=== PATIENT | female | born 1955 | race Two or more races ===

== ENCOUNTER 2021-02-12 10:25 | Outpatient (AMBR) | payer MEDICAID, SELFPAY ==
--- NOTE | 2021-01-30 11:36 | PT.OIERPT ---
PT OP Initial Eval Patient Information Visit Reasons: lumbar/cervical Medical Diagnosis: M48.02 Treatment Dx #1: Neck Pain Treatment Dx #2: C/S Mobility Deficits Start of Care: 01/30/21 Date of Onset: 2 years ago Initial Assessment Subjective Pt is a 65 y/o female reports of chronic neck pain (02/23) with BUE numbness and tingling down the arms. Pt's past c/s MRI showed moderate-severe stenosis multi-levels. Pt c/o constant headache and difficulty with chores, self care, sleeping, lifting, cooking, cleaning, and recreational activities. Pt is also under the care of a pain management doctor in [facility]. Objective C/S AROM: all motions are 50% towards end range with pain except extension to neutral Shoulder AROM Flexion: 140 deg Abduction: 120 deg External Rotation: 80 deg Internal Rotation: 70 deg Shoulder MMTs: grossly 3-/5 Scapula MMTs: grossly 3-/5 Palpation: TTP and increase tone upper trape and levator scapulae; TTP bilateral suboccipitals DNF Endurance Test: unable due to pain Posture: forward head, rounded shoulders with slight T/S kyphosis Assessment Pt demonstrate c/s mobility deficits with pain consistent with MRI finding of c/s stenosis leading to decline function and difficultly with ADLs. Pt will attempt physical therapy if pain persist Pt will be refer back to MD for further consultation. Short Term and Prison Goals 1) Increase C/S AROM WFL in 8 wks to be able to perform chores 2) Increase BUE AROM WFL in 8 wks to be able to cook and clean with less limitation 3) Increase BUE MMTs grossly to 3+/5 in 8 wks to be able to perform lifting activities 4) Decrease neck pain to 4/10 in 8 wks to be able to sleep more than 5 hrs 5) Indep with HEP Treatment Plan 1) Manual Therapy 2) Therapeutic Activities 3) Therapeutic Exercises 4) Modalities (ice, heat, estim, traction) Frequency and Duration 2 x wk for 8 wks Certification Dates: 01/30/21 to 05/01/21 Office Procedures PT Treatments PT Date of Service: 01/30/21 OP PT Eval Mod Complex 30 minutes: Yes
--- NOTE | 2021-02-05 13:55 | PTNOTE_ITS ---
PT Outpatient Daily Note Date of Service: 02/05/21 OP Daily Note Visit Reasons: lumbar/cervical Outpatient Physical Therapy Treatment Date: 02/05/21 Subjective: Pt's neck hurts and head feels heavy on the shoulders. Pt has difficulty sleeping due to her pain. Objective: Please see flow chart for list of ther ex performed Assessment: c/s traction and STM help decrease neck pain with improve neck flexion/extension AROM. Pt tolerate heat with stretches well Plan: Continue with PT Length of Time (minutes) of Treatment: 30 Minutes Office Procedures PT Treatments PT Date of Service: 02/05/21 Therapeutic Exercise 15 minutes: Yes Manual Distribution Warehouse Manager 15 minutes: Yes PT Treatments PT Date of Service: 01/30/21 OP PT Eval Mod Complex 30 minutes: Yes
--- NOTE | 2021-02-12 12:13 | PT.ODAYNRPT ---
PT Outpatient Daily Note Date of Service: 02/12/21 OP Daily Note Visit Reasons: lumbar/cervical Outpatient Physical Therapy Treatment Date: 02/12/21 Subjective: Pt's neck feels worse after last session. Pt continues to notice her head heavy Objective: Please see flow chart for list of ther ex performed Assessment: tolerate exercises with minimal pain; demonstrate decrease suboccipital muscle tone which she did not need STM. Pt still exhibit tension in right upper trape and levator which improve after stretching + heat Plan: Continue with PT Length of Time (minutes) of Treatment: 30 Minutes Office Procedures PT Treatments PT Date of Service: 02/05/21 Therapeutic Exercise 15 minutes: Yes Manual Visitor Services Technician 15 minutes: Yes PT Treatments PT Date of Service: 02/12/21 Therapeutic Exercise 30 minutes: Yes PT Treatments PT Date of Service: 01/30/21 OP PT Eval Mod Complex 30 minutes: Yes
== END 2021-02-13 23:59 | disposition home or self-care (01) ==
PROVIDERS: PCP Psychiatry & Neurology Neurology; Referring Provider Psychiatry & Neurology Neurology; Visit Provider Physical Medicine & Rehabilitation Pain Medicine
DX: M54.2 Cervicalgia (principal); G89.29 Other chronic pain; R20.0 Anesthesia of skin; R20.2 Paresthesia of skin
CPT/HCPCS: 97110; 97140; 97162

== ENCOUNTER 2021-03-28 13:17 | Outpatient (AMBR) | payer MEDICAID, SELFPAY ==
--- NOTE | 2021-03-25 14:03 | PT.ODAYNRPT ---
PT Outpatient Daily Note Date of Service: 03/25/2021 OP Daily Note Visit Reasons: cervical Outpatient Physical Therapy Treatment Date: 03/25/21 Subjective: Pt reports she has alot of pain to her neck and her back hurts when shes laying down. Objective: See flow chart for therex. MT: STM w/ graston x 10mins. Mechanical Traction: C/S x 15lbs x 7mins. Assessment: Pt has pain when in supine to her mid and lower back. Asked pt if she wanted to sit up and she said she was able to tolerate it. Edema present to L cervical. Mod tissue irritability to subboccipitals. Pt tolerated MT and Mechanical traction well w/out complaints. Plan: Cont POC per PT. Length of Time (minutes) of Treatment: 30 Minutes Office Procedures PT Treatments PT Date of Service: 03/25/21 Therapeutic Exercise 15 minutes: Yes Manual Sanitation Technician 15 minutes: Yes
--- NOTE | 2021-03-28 15:19 | PT.ODAYNRPT ---
PT Outpatient Daily Note Date of Service: 03/28/2021 OP Daily Note Visit Reasons: cervical Outpatient Physical Therapy Treatment Date: 03/28/21 Subjective: pt states her neck has pain upon visit. Objective: see flow sheet. Assessment: she did not tolerate the heat around the neck long due to sensitivity. she needs assistance with getting up from traction in supine to EOB. pt needs more practice with chin tucks exercise as she has poor form. added pulleys with side bend of the c/s and she tolerated well with no complaints. Plan: continue POC per PT. Length of Time (minutes) of Treatment: 30 Minutes Office Procedures PT Treatments PT Date of Service: 03/28/21 Traction Mechanical: Yes Therapeutic Exercise 15 minutes: Yes PT Treatments PT Date of Service: 03/25/21 Therapeutic Exercise 15 minutes: Yes Manual Surgical Consultant 15 minutes: Yes
== END 2021-04-15 23:59 | disposition home or self-care (01) ==
PROVIDERS: PCP Psychiatry & Neurology Neurology; Referring Provider Psychiatry & Neurology Neurology; Visit Provider Psychiatry & Neurology Neurology
DX: M54.2 Cervicalgia (principal); G89.29 Other chronic pain; R20.0 Anesthesia of skin; R20.2 Paresthesia of skin
CPT/HCPCS: 97012; 97110; 97140

== ENCOUNTER 2021-04-17 14:08 | Outpatient (AMBR) | payer MEDICAID, SELFPAY ==
--- NOTE | 2021-04-17 14:17 | PTNOTE_ITS ---
PT OP Progress/Discharge Note Date of Service: 04/17/21 Progress Note/DC Note Progress Note/Discharge Note: DC Note Patient Information Visit Reasons: cervical Medical Diagnosis: M48.02 Treatment Dx #1: Neck Pain Treatment Dx #2: C/S Mobility Deficits Service Continue Service or Discharge: Discharge Discharge Date: 04/17/21 Status Subjective: Pt's neck is the same since starting physical therapy. Pt continues to have neck pain (11/23) with numbness and tingling down her arms. Due to Pt's symptoms she has limitation with lifting, cooking, self care, and performing recreational activities. Pt has been trying to follow up with her neurologist but can't seem to get in due to no further appointments available until the new year. Objective: C/S AROM: all motions are 75 % towards end range with pain Shoulder AROM Flexion: 140 deg Abduction: 120 deg External Rotation: 80 deg Internal Rotation: 70 deg Shoulder MMTs: grossly 3-/5 Scapula MMTs: grossly 3-/5 Palpation: TTP and increase tone upper trape and levator scapulae Assessment: Pt demonstrate minimal progression towards goals or changes with overall cervical spine pain leading to continue limitation with ADLs. Pt will no longer benefit from physical therapy and was advised to follow up with provider for further consultation; thank you for your referrals. Plan: D/C home with [facility] and follow up with MD Office Procedures PT Treatments PT Date of Service: 04/17/21 Therapeutic Exercise 30 minutes: Yes
== END 2021-05-16 23:59 | disposition home or self-care (01) ==
PROVIDERS: PCP Psychiatry & Neurology Neurology; Referring Provider Psychiatry & Neurology Neurology; Visit Provider Psychiatry & Neurology Neurology
DX: M54.2 Cervicalgia (principal); G89.29 Other chronic pain; R20.0 Anesthesia of skin; R20.2 Paresthesia of skin
CPT/HCPCS: 97110

== ENCOUNTER 2024-04-28 19:33 | Emergency (ER) | payer MEDICARE, MEDICAID, SELFPAY ==
[2024-04-28 19:33] VITALS: BMI 26.6
[2024-04-28 20:07] VITALS: BP 150/75; PULSE 78; RESP 20; TEMP 37; O2SAT 97
--- NOTE | 2024-04-28 20:28 | EDNOTE_ITS ---
<Statement entered by Julissa Dias MD - 04/29/24 19:43> As co-signing physician, I was present and available for consult prn. I concur with the plan and care as documented by the midlevel provider. ED Back Injury Pain RME/HPI General Chief Complaint: Back Pain/Injury Stated Complaint: LOWER BACK PAIN Time Seen by Provider: 04/28/24 20:07 Source: patient Arrival date/time: 04/28/24 19:33 69-year-old female presents emergency department complaining of lower back pain that is been ongoing since this morning. Patient reports has chronic low back pain and usually receives Toradol and Benadryl injection that improved symptoms. Patient denies any fever, chills, dysuria, flank pain, bowel or bladder dysfunction, or any other associated symptom. Patient reports has pending MRI of lower back. Mode of arrival: ambulatory Limitations: no limitations Related Data Home Medications ?Medication ?Instructions ?Recorded ?Confirmed clonidine HCl 0.2 mg tablet 0.2 mg PO TID 08/05/20 01/27/22 loratadine 10 mg tablet 10 mg PO QDAY 08/05/20 01/27/22 metoprolol tartrate 50 mg tablet 50 mg PO BID 08/05/20 01/27/22 montelukast 10 mg tablet 10 mg PO HS 08/05/20 01/27/22 atorvastatin 10 mg tablet 10 mg PO HS 10/09/21 01/27/22 pregabalin 100 mg capsule 100 mg PO BID 10/09/21 01/27/22 amlodipine 5 mg tablet 5 mg PO QDAY 01/27/22 01/27/22 ferrous sulfate 325 mg (65 mg 325 mg PO QDAY 01/27/22 01/27/22 iron) tablet furosemide 40 mg tablet 40 mg PO QAM 01/27/22 01/27/22 Previous Rx's ?Medication ?Instructions ?Recorded potassium chloride 8 mEq 8 meq PO QDAY #7 caps 10/12/21 capsule,extended release lidocaine 5 % topical patch 2 patch topical QDAY #15 ea 01/25/22 (Lidoderm) melatonin 5 mg tablet 5 mg PO HS PRN sleep #30 tabs 01/25/22 lidocaine 5 % topical patch 1 patch topical QDAY #15 ea 04/16/22 benzonatate 200 mg capsule 200 mg PO TID PRN cough #20 caps 03/23/23 naproxen 500 mg tablet 500 mg PO BID #30 tabs 10/27/23 hydrocodone 5 mg-acetaminophen 325 1 tab PO BID PRN pain #6 tabs 11/14/23 mg tablet dextromethorphan-guaifenesin 10 10 ml PO Q4H PRN cough #500 mL 12/14/23 mg-100 mg/5 mL oral liquid (Diabetic Tussin DM) nirmatrelvir 150 mg-ritonavir 100 See Rx Instructions PO .COMPLEX 12/14/23 mg tablets in a dose pack #20 tabs (Paxlovid) cyclobenzaprine 10 mg tablet 10 mg PO TID PRN muscle spasm #10 04/28/24 tabs ibuprofen 600 mg tablet 600 mg PO Q8H PRN pain #20 tabs 04/28/24 Allergies Allergy/AdvReac Type Severity Reaction Status Date / Time Iodinated Contrast Media Allergy Severe I FEEL Verified 02/09/24 18:33 LIKE MY THROAT IS CLOSING, VOMITING lactose Allergy Severe Diarrhea Verified 02/09/24 18:33 Review of Systems Review of Systems Systems Reviewed: All systems reviewed, normal except as documented Constitutional Constitutional: Reports system reviewed and no additional complaints, except as documented, Denies body ache(s), Denies chills and Denies fever(s) Eyes Eyes: Reports system reviewed and no additional complaints, except as documented and Denies change in vision ENT Ears, Nose, Mouth, and Throat: Reports system reviewed and no additional complaints, except as documented, Denies disequilibrium, Denies dizziness, Denies sore throat and Denies vertigo Cardiovascular Cardiovascular: Reports system reviewed and no additional complaints, except as documented, Denies chest pain and Denies dyspnea Respiratory Respiratory: Reports system reviewed and no additional complaints, except as documented, Denies chest congestion, Denies cough and Denies dyspnea Gastrointestinal Gastrointestinal: Reports system reviewed and no additional complaints, except as documented, Denies abdominal pain, Denies nausea and Denies vomiting Musculoskeletal Musculoskeletal: Reports system reviewed and no additional complaints, except as documented, Denies abnormal gait, Denies arthralgias and Reports back pain Integumentary/Breasts Skin/Breast: Reports system reviewed and no additional complaints, except as documented, Denies erythema, Denies rash and Denies wounds Neurologic Neurologic: Reports system reviewed and no additional complaints, except as documented, Denies abnormal gait, Denies disequilibrium, Denies dizziness and Denies vertigo Past Medical History Past Medical History NEUROLOGIC: Positive Neurological Disorders, Cerebrovascular Accident and Subdural Hematoma CARDIAC: Positive Cardiac Disorders, Hypercholesterolemia and Hypertension; Negative Congestive Heart Failure RESPIRATORY: Positive Asthma; Negative Chronic Obstructive Pulmonary Disease (COPD) GASTROINTESTINAL: Positive Hiatal Hernia GENITOURINARY: Negative Renal Disease MUSCULOSKELETAL: Positive Arthritis and Fibromyalgia ENDOCRINE: Positive Diabetes Mellitus Type 2; Negative Diabetes Mellitus Type 1 Social History SMOKING STATUS: Never smoker SUBSTANCE USE: does not use ED Exam General Limitations: Present no limitations General appearance: Present alert and in no apparent distress Head Head exam: Present atraumatic Eye Eye exam: Present normal appearance, PERRL and EOMI ENT ENT exam: Present normal exam, normal oropharynx and mucous membranes moist Neck Neck exam: Present normal inspection, full ROM and trachea midline Chest Chest inspection: Present normal inspection and symmetric chest wall rise Respiratory Respiratory exam: Present normal lung sounds bilaterally Cardiovascular Cardiovascular exam: Present regular rate, normal rhythm and normal heart sounds Abdominal Exam Abdominal exam: Present soft and normal bowel sounds Extremities Exam Extremities exam: Present normal inspection and full ROM Back Exam Back exam: Present normal inspection, full ROM and straight leg raise (L); Absent CVA tenderness (R) or CVA tenderness (L) Neurological Exam Neurological exam: Present alert, oriented X3 and CN II-XII intact Psychiatric Psychiatric exam: Present normal affect and normal mood Skin Skin exam: Present warm, dry, intact and normal color Course Quality Measures none Orders Category Date Time Status DiphenhydrAMINE INJ [Benadryl Inj] Med 04/28/24 20:28 Discontinued 25 mg IM X1 ONE Ketorolac Inj [Toradol Inj] Med 04/28/24 20:28 Discontinued 30 mg IM X1 ONE Vital Signs Vital signs: Vital Signs Temperature 98.6 F 04/28/24 20:07 Pulse Rate 78 04/28/24 20:07 Respiratory Rate 20 04/28/24 20:07 Blood Pressure 150/75 H 04/28/24 20:07 Pulse Oximetry (%) 97 04/28/24 20:07 Oxygen Delivery Method Room Air 04/28/24 20:07 97% room air within normal limits Back Pain / Injury MDM Narrative MDM Narrative:: 69-year-old female presents emergency department complaining of lower back pain that is been ongoing since this morning. Patient reports has chronic low back pain and usually receives Toradol and Benadryl injection that improved symptoms. Patient denies any fever, chills, dysuria, flank pain, bowel or bladder dysfunction, or any other associated symptom. Patient reports has pending MRI of lower back. Patient given pain medication reported improvement in symptoms. Patient appears nontoxic and is hemodynamically stable. Patient left straight leg raise positive. Patient likely suffering from chronic back pain. Patient ambulating independently with steady gait. Patient discharged with pain medication and muscle relaxer instructed to follow- up with primary care provider. Instructed to return to emergency department for any worsening symptoms or as needed. Patient data External records reviewed:: [facility] previous records Clinical information provided by:: patient Social determinants that could affect healthcare access:: none Patient has the following chronic illnesses:: See chart How is presenting disease/condition affected by chronic disease/condition?: exacerbated by Evaluation data The following diagnostics were reviewed and interpreted by me:: other (specify) (N/A) Lab and/or radiology exams considered but not ordered:: N/A Interpretation Summary: N/A Medications / Prescriptions Medications or Prescriptions considered but not ordered:: Ordered Medication administrations:: Medication Administration History Discontinued Medications Diphenhydramine HCl (Diphenhydramine Inj 50 Mg/Ml Vial) 25 mg IM X1 ONE Stop: 04/28/24 20:29 Last Admin: 04/28/24 21:06 Dose: 25 mg Documented By: Ketorolac Tromethamine (Ketorolac Inj 60 Mg/2 Ml Vial) 30 mg IM X1 ONE Stop: 04/28/24 20:29 Last Admin: 04/28/24 21:08 Dose: 30 mg Documented By: Given Consultations Consultation(s) initiated? (list below): No Diagnosis Differential diagnosis back pain/injury: lumbar radiculopathy, sciatica, strain of lumbar region, renal colic, pyelonephritis, thoracic back pain and discitis Most likely diagnosis given after review of the tests above:: Back pain Admission Indicated Admission indicated?: not indicated Admission Request Was there a request for admission?: No Disposition Plan Disposition Plan: Discharge Discharge Attestation Discharge Attestation: The patient and all family members were given an opportunity to ask questions and understood the discharge instructions. Discharge instructions specifically effects, indications for sooner follow up or return to the emergency department, and the expected course of current diagnosis. Patient condition: Stable Discharge Plan Plan Patient Disposition: HOME (Self Care) Disposition Comment: Stable Prescriptions/Referrals Prescriptions/Med Rec: New cyclobenzaprine 10 mg tablet 10 mg PO TID PRN (Reason: muscle spasm) Qty: 10 0RF ibuprofen 600 mg tablet 600 mg PO Q8H PRN (Reason: pain) Qty: 20 0RF No Action atorvastatin 10 mg Tablet 10 mg PO HS pregabalin 100 mg capsule 100 mg PO BID clonidine HCl 0.2 mg tablet 0.2 mg PO TID metoprolol tartrate 50 mg tablet 50 mg PO BID montelukast 10 mg tablet 10 mg PO HS loratadine 10 mg tablet 10 mg PO QDAY potassium chloride 8 mEq capsule, extended release 8 meq PO QDAY Qty: 7 0RF lidocaine [Lidoderm] 5 % adhesive patch,medicated 2 patch topical QDAY Qty: 15 0RF Rx Instructions: leave on most painful area for up to 12 hrs melatonin 5 mg tablet 5 mg PO HS PRN (Reason: sleep) Qty: 30 0RF benzonatate 200 mg capsule 200 mg PO TID PRN (Reason: cough) Qty: 20 0RF hydrocodone-acetaminophen 5-325 mg tablet 1 tab PO BID MDD 10 PRN (Reason: pain) Qty: 6 0RF Paxlovid 150-100 mg tablets,dose pack See Rx Instructions PO .COMPLEX Qty: 20 0RF Rx Instructions: take ONE 150 mg tablet of nirmatrelvir with ONE 100 mg tablet of ritonavir twice daily for 5 days dextromethorphan-guaifenesin [Diabetic Tussin DM] 10-100 mg/5 mL liquid 10 ml PO Q4H PRN (Reason: cough) Qty: 500 0RF furosemide 40 mg Tablet 40 mg PO QAM amlodipine 5 mg Tablet 5 mg PO QDAY ferrous sulfate 325 mg (65 mg iron) Tablet 325 mg PO QDAY lidocaine 5 % adhesive patch,medicated 1 patch topical QDAY Qty: 15 0RF Rx Instructions: leave on most painful area for up to 12 hrs naproxen 500 mg tablet 500 mg PO BID Qty: 30 0RF Referrals: Temporary Provider,ED [Physician] - In 1 week Problem List Clinical Impression: Back pain Patient/Caregiver Discharge Instructions Discharge Activity: activity as tolerated Education Materials: Anatomy of a Normal Spine, Back Basics: A Healthy Spine, Back Exercises: Abdominal Lift Additional Instructions: Take medication as prescribed. Close follow-up with primary care provider request referral physical therapy or MRI of lower spine if symptoms persist. Return to emergency department for any worsening symptoms or as needed. Print Language: Slovak Stand Alone Forms: [employer] Award Info., Patient Portal Info Letter PA/HAUL DRIVER Supervising Physician PA/HAUL DRIVER Supervising Physician: Dr. Dias
[2024-04-28] MEDS: DiphenhydrAMINE INJ 50 MG/ML VIAL 25 MG IM (21:06)
[2024-04-28] MEDS: KETOROLAC INJ 60 MG/2 ML VIAL 30 MG IM (21:08)
== END 2024-04-28 21:20 | disposition home or self-care (01) ==
LOC: SERX 20:56
PROVIDERS: Emergency Provider Emergency Medicine; PCP Physician Assistant
DX: M54.50 Low back pain, unspecified (principal); G89.29 Other chronic pain
CPT/HCPCS: 96372; 99283; J1200; J1885

== ENCOUNTER → 2024-05-15 | Outpatient (CLI) | payer MEDICARE, MEDICAID, SELFPAY ==
--- NOTE | 2024-05-15 12:00 | XR_ITS ---
Examination: MRI cervical spine with intravenous contrast TECHNIQUE: Multiple axial sagittal MR images post intravenous ministration 14 cc gadolinium Exam date and time: 12/14/2023 1315 hours Comparison March 01, 2024 INDICATIONS: Injury to the head February 09, 2024 with neck pain, enlarged inner vertebral foramina FINDINGS: Adequate alignment cervical vertebral bodies The images are degraded by patient motion No vertebral body fracture No enhancing neural foraminal tumor depicted No abnormal osseous epidural or cervical cord enhancement IMPRESSION: Limited study, continual patient motion No abnormal osseous epidural or cervical cord enhancement
== END | disposition home or self-care (01) ==
LOC: SMRI 05-18 06:55
PROVIDERS: PCP Physician Assistant; Referring Provider Psychiatry & Neurology Neurology; Visit Provider Internal Medicine
DX: M54.2 Cervicalgia (principal); S09.90XS Unspecified injury of head, sequela; X58.XXXS Exposure to other specified factors, sequela
CPT/HCPCS: 72142; A9579

== ENCOUNTER 2024-06-06 16:57 | Emergency (ER) | payer MEDICARE, MEDICAID, SELFPAY ==
--- NOTE | 2024-06-06 17:25 | XR_ITS ---
Examination: Lumbar spine 3 views Technique one AP lateral coned lateral lower lumbar spine 3 views Exam date and time: June 06, 2024 7059 hours Comparison 01/16/2024 Indications: Lower back pain today Findings: Lumbar dextroscoliosis 22 degrees Heavy calcification abdominal aorta, AP dimension at least 3.8 cm at the L3 level No acute lumbar fracture Advanced diffuse lumbar degenerative disc disease with significant spinal stenosis Impression: Advanced diffuse lumbar degenerative disc disease with significant spinal stenosis
--- NOTE | 2024-06-06 17:25 | XR_ITS ---
Examination: Right femur 2 views Technique one AP lateral right femur 2 views Exam date and time: June 06, 2024 at 1806 hrs. Indications: Right thigh right leg pain beginning one week ago Findings: Right hip and femoral shaft appear intact No hip dislocation Moderate narrowing right hip joint Moderate tricompartment osteoarthritis of the knee Impression: No acute hip or femur fracture
--- NOTE | 2024-06-06 17:25 | XR_ITS ---
Examination: Knee, right , 3 views Technique: Knee AP, lateral, oblique 3 views Date and time of exam: June 06, 2024 at 1759 hrs. Indications: Right knee pain today. Findings: Moderate osteopenia. No fracture Moderate tricompartment osteoarthritis Small to moderate knee effusion Impression: Moderate tricompartment osteoarthritis
--- NOTE | 2024-06-06 17:26 | PD.EDRME ---
Rapid Medical Screening Exam RME Arrival date/time: 06/06/24 16:57 69-year-old female presents to the emergency department complains of lower back pain worse with movement Chief Complaint: Extremity Problem,Nontraumatic
[2024-06-06 17:29] VITALS: BP 142/86; PULSE 99; RESP 16; TEMP 37.2; O2SAT 96; BMI 28.6
[2024-06-06] MEDS: KETOROLAC INJ 30 MG/ML VIAL IM (17:42)
--- NOTE | 2024-06-06 21:08 | PD.EDEXREM ---
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 Pain is described as aching and rated moderate in severity. Movement exacerbates the pain. Patient denies any fall, injury, or any other symptoms at this time. PMHx: Chronic back pain, arthritis, hypertension, and diabetes. Social Hx: No tobacco, alcohol, or substance use. Related Data Home Medications ?Medication ?Instructions ?Recorded ?Confirmed clonidine HCl 0.2 mg tablet 0.2 mg PO TID 08/05/20 01/27/22 loratadine 10 mg tablet 10 mg PO QDAY 08/05/20 01/27/22 metoprolol tartrate 50 mg tablet 50 mg PO BID 08/05/20 01/27/22 montelukast 10 mg tablet 10 mg PO HS 08/05/20 01/27/22 atorvastatin 10 mg tablet 10 mg PO HS 10/09/21 01/27/22 pregabalin 100 mg capsule 100 mg PO BID 10/09/21 01/27/22 amlodipine 5 mg tablet 5 mg PO QDAY 01/27/22 01/27/22 ferrous sulfate 325 mg (65 mg 325 mg PO QDAY 01/27/22 01/27/22 iron) tablet furosemide 40 mg tablet 40 mg PO QAM 01/27/22 01/27/22 Previous Rx's ?Medication ?Instructions ?Recorded potassium chloride 8 mEq 8 meq PO QDAY #7 caps 10/12/21 capsule,extended release lidocaine 5 % topical patch 2 patch topical QDAY #15 ea 01/25/22 (Lidoderm) melatonin 5 mg tablet 5 mg PO HS PRN sleep #30 tabs 01/25/22 lidocaine 5 % topical patch 1 patch topical QDAY #15 ea 04/16/22 benzonatate 200 mg capsule 200 mg PO TID PRN cough #20 caps 03/23/23 naproxen 500 mg tablet 500 mg PO BID #30 tabs 10/27/23 hydrocodone 5 mg-acetaminophen 325 1 tab PO BID PRN pain #6 tabs 11/14/23 mg tablet dextromethorphan-guaifenesin 10 10 ml PO Q4H PRN cough #500 mL 12/14/23 mg-100 mg/5 mL oral liquid (Diabetic Tussin DM) nirmatrelvir 150 mg-ritonavir 100 See Rx Instructions PO .COMPLEX 12/14/23 mg tablets in a dose pack #20 tabs (Paxlovid) cyclobenzaprine 10 mg tablet 10 mg PO TID PRN muscle spasm #10 04/28/24 tabs ibuprofen 600 mg tablet 600 mg PO Q8H PRN pain #20 tabs 04/28/24 Allergies Allergy/AdvReac Type Severity Reaction Status Date / Time Iodinated Contrast Media Allergy Severe I FEEL Verified 06/06/24 16:59 LIKE MY THROAT IS CLOSING, VOMITING lactose Allergy Severe Diarrhea Verified 06/06/24 16:59 Review of Systems Review of Systems Systems Reviewed: All systems reviewed, normal except as documented Narrative Review of Systems: GEN: No fever, no chills, no weight loss EYES: No discharge, no visual changes, no pain HEENT: No ear pain, no congestion, no sore throat PULM: No shortness of breath, no cough, no congestion CV: No chest pain, no dyspnea on exertion, no palpitations GI: No nausea, no vomiting, no diarrhea, no pain, no constipation : No frequency, no urgency and no dysuria MUSC/SKEL: + right knee pain/ right leg pain, no back pain SKIN: No rash PSYCH: No hallucinations, no depression HEME/LYMPH: No easy bleeding or bruising tendencies NEURO: No weakness, no headache Past Medical History Past Medical History NEUROLOGIC: Positive Neurological Disorders, Cerebrovascular Accident and Subdural Hematoma CARDIAC: Positive Cardiac Disorders, Hypercholesterolemia and Hypertension; Negative Congestive Heart Failure RESPIRATORY: Positive Asthma; Negative Chronic Obstructive Pulmonary Disease (COPD) GASTROINTESTINAL: Positive Hiatal Hernia GENITOURINARY: Negative Renal Disease MUSCULOSKELETAL: Positive Arthritis and Fibromyalgia ENDOCRINE: Positive Diabetes Mellitus Type 2; Negative Diabetes Mellitus Type 1 Social History SMOKING STATUS: Never smoker SUBSTANCE USE: does not use ALCOHOL: Never ED Exam General Limitations: Present no limitations General appearance: Present alert and in no apparent distress Head Head exam: Present atraumatic, normocephalic and normal inspection Eye Eye exam: Present normal appearance, PERRL and EOMI ENT ENT exam: Present normal exam, normal oropharynx and mucous membranes moist Neck Neck exam: Present normal inspection, full ROM and trachea midline Chest Chest inspection: Present normal inspection and symmetric chest wall rise Respiratory Respiratory exam: Present normal lung sounds bilaterally Cardiovascular Cardiovascular exam: Present regular rate, normal rhythm and normal heart sounds Abdominal Exam Abdominal exam: Present soft and normal bowel sounds Extremities Exam Extremities exam: Present other (decreased right knee ROM, but FROM of right hip; some crepitus on right knee) Back Exam Back exam: Present normal inspection and full ROM Neurological Exam Neurological exam: Present alert, oriented X3 and CN II-XII intact Psychiatric Psychiatric exam: Present normal affect and normal mood Skin Skin exam: Present warm, dry, intact and normal color Course Quality Measures none Orders Category Date Time Status XR femur RT 2V Stat Exams 06/06/24 17:25 Completed XR knee RT 3V Stat Exams 06/06/24 17:25 Completed XR lumbar spine 2-3V Stat Exams 06/06/24 17:25 Completed HYDROcodone/APAP 10/325 [[place] 10/325] Med 06/06/24 21:08 Discontinued 1 tab PO X1 ONE Ketorolac Inj [Toradol Inj] Med 06/06/24 17:25 Discontinued 30 mg IM X1 ONE Vital Signs Vital signs: Vital Signs Temperature 99.0 F 06/06/24 17:29 Pulse Rate 99 06/06/24 17:29 Respiratory Rate 16 06/06/24 17:29 Blood Pressure 142/86 H 06/06/24 17:29 Pulse Oximetry (%) 96 06/06/24 17:29 Oxygen Delivery Method Room Air 06/06/24 17:29 Extremity Problem MDM Narrative MDM Narrative:: IShy am scribing for and in the presence of Dr. Olsen. Patient data External records reviewed:: [facility] previous records (Reviewed last ED visit dated 04/28/24, discharged with the following: back pain.) Clinical information provided by:: patient Social determinants that could affect healthcare access:: none Patient has the following chronic illnesses:: Chronic back pain, arthritis, hypertension, and diabetes. How is presenting disease/condition affected by chronic disease/condition?: exacerbated by Evaluation data The following diagnostics were reviewed and interpreted by me:: radiology exam(s) Lab and/or radiology exams considered but not ordered:: none Interpretation Summary: Procedure(s): XR lumbar spine 2-3V Accession Number(s): [id number] cc: Corazon BLACKWELL),Deonte LEGGETT; Salinas Peña MD; Katt Amezquita PA-C~ Examination: Lumbar spine 3 views Technique one AP lateral coned lateral lower lumbar spine 3 views Exam date and time: June 06, 2024 7059 hours Comparison 01/16/2024 Indications: Lower back pain today Findings: Lumbar dextroscoliosis 22 degrees Heavy calcification abdominal aorta, AP dimension at least 3.8 cm at the L3 level No acute lumbar fracture Advanced diffuse lumbar degenerative disc disease with significant spinal stenosis Impression: Advanced diffuse lumbar degenerative disc disease with significant spinal stenosis Dictated By: Salinas Peña MD Procedure(s): XR knee RT 3V Accession Number(s): [id number] cc: Corazon BLACKWELL),Deonte LEGGETT; Salinas Peña MD; Katt Amezquita PA-C~ Examination: Knee, right , 3 views Technique: Knee AP, lateral, oblique 3 views Date and time of exam: June 06, 2024 at 1759 hrs. Indications: Right knee pain today. Findings: Moderate osteopenia. No fracture Moderate tricompartment osteoarthritis Small to moderate knee effusion Impression: Moderate tricompartment osteoarthritis Dictated By: Salinas Peña MD Procedure(s): XR femur RT 2V Accession Number(s): [id number] cc: Corazon (BETSEY),Deonte LEGGETT; Salinas Peña MD; Katt Amezquita PA-C~ Examination: Right femur 2 views Technique one AP lateral right femur 2 views Exam date and time: June 06, 2024 at 1806 hrs. Indications: Right thigh right leg pain beginning one week ago Findings: Right hip and femoral shaft appear intact No hip dislocation Moderate narrowing right hip joint Moderate tricompartment osteoarthritis of the knee Impression: No acute hip or femur fracture Dictated By: Salinas Peña MD Medications / Prescriptions Medications or Prescriptions considered but not ordered:: none Medication administrations:: Medication Administration History Discontinued Medications Hydrocodone Bitart/Acetaminophen (Hydrocodone/Apap 10/325 Tab) 1 tab PO X1 ONE Stop: 06/06/24 21:09 Last Admin: 06/06/24 21:13 Dose: 1 tab Documented By: EE Ketorolac Tromethamine (Ketorolac Inj 30 Mg/Ml Vial) 30 mg IM X1 ONE Stop: 06/06/24 17:26 Last Admin: 06/06/24 17:42 Dose: 30 mg Documented By: KF see above Consultations Consultation(s) initiated? (list below): No Diagnosis Extremity Problem Differential Diagnosis: other (knee fracture, dislocation, arthritis) Most likely diagnosis given after review of the tests above:: Osteoarthritis Admission Indicated Admission indicated?: not indicated Admission Request Was there a request for admission?: No Disposition Plan Disposition Plan: Discharge Discharge Attestation Discharge Attestation: The patient and all family members were given an opportunity to ask questions and understood the discharge instructions. Discharge instructions specifically effects, indications for sooner follow up or return to the emergency department, and the expected course of current diagnosis. Patient condition: Stable Discharge Plan Plan Patient Disposition: HOME (Self Care) Patient condition on transfer: Stable Prescriptions/Referrals Prescriptions/Med Rec: No Action atorvastatin 10 mg Tablet 10 mg PO HS pregabalin 100 mg capsule 100 mg PO BID clonidine HCl 0.2 mg tablet 0.2 mg PO TID metoprolol tartrate 50 mg tablet 50 mg PO BID montelukast 10 mg tablet 10 mg PO HS loratadine 10 mg tablet 10 mg PO QDAY potassium chloride 8 mEq capsule, extended release 8 meq PO QDAY Qty: 7 0RF lidocaine [Lidoderm] 5 % adhesive patch,medicated 2 patch topical QDAY Qty: 15 0RF Rx Instructions: leave on most painful area for up to 12 hrs melatonin 5 mg tablet 5 mg PO HS PRN (Reason: sleep) Qty: 30 0RF benzonatate 200 mg capsule 200 mg PO TID PRN (Reason: cough) Qty: 20 0RF hydrocodone-acetaminophen 5-325 mg tablet 1 tab PO BID MDD 10 PRN (Reason: pain) Qty: 6 0RF Paxlovid 150-100 mg tablets,dose pack See Rx Instructions PO .COMPLEX Qty: 20 0RF Rx Instructions: take ONE 150 mg tablet of nirmatrelvir with ONE 100 mg tablet of ritonavir twice daily for 5 days dextromethorphan-guaifenesin [Diabetic Tussin DM] 10-100 mg/5 mL liquid 10 ml PO Q4H PRN (Reason: cough) Qty: 500 0RF furosemide 40 mg Tablet 40 mg PO QAM amlodipine 5 mg Tablet 5 mg PO QDAY ferrous sulfate 325 mg (65 mg iron) Tablet 325 mg PO QDAY lidocaine 5 % adhesive patch,medicated 1 patch topical QDAY Qty: 15 0RF Rx Instructions: leave on most painful area for up to 12 hrs naproxen 500 mg tablet 500 mg PO BID Qty: 30 0RF cyclobenzaprine 10 mg tablet 10 mg PO TID PRN (Reason: muscle spasm) Qty: 10 0RF ibuprofen 600 mg tablet 600 mg PO Q8H PRN (Reason: pain) Qty: 20 0RF Referrals: Katt Amezquita PA-C [Primary Care Provider] - In 1 week Problem List Clinical Impression: Osteoarthritis Patient/Caregiver Discharge Instructions Print Language: [place] Stand Alone Forms: [employer] Info., Patient Portal Info Letter
[2024-06-06] MEDS: HYDROcodone/APAP 10/325 TAB PO (21:13)
== END 2024-06-06 22:18 | disposition home or self-care (01) ==
PROVIDERS: Emergency Provider Emergency Medicine; PCP Physician Assistant
DX: M17.11 Unilateral primary osteoarthritis, right knee (principal); M51.360 Other intervertebral disc degeneration, lumbar region with discogenic back pain only; M79.651 Pain in right thigh
CPT/HCPCS: 72100; 73552; 73562; 96372; 99283; J1885; A9270

== ENCOUNTER → 2024-10-03 | Outpatient (CLI) | payer MEDICARE, MEDICAID, SELFPAY ==
--- NOTE | 2024-10-03 13:14 | XR_ITS ---
Examination: Bilateral wrists 6 views Technique: AP oblique lateral each wrist total 6 views Date and time of exam: October 03, 2024 1435 hours INDICATIONS: Bilateral wrist pain beginning 5 years ago FINDINGS: Prominent osteopenia Soft tissue vascular calcification Mild bilateral osteoarthritis first carpometacarpal joints No fractures No avascular necrosis IMPRESSION: Mild bilateral osteoarthritis first carpometacarpal joints
== END | disposition home or self-care (01) ==
PROVIDERS: PCP Physician Assistant; Referring Provider Physician Assistant; Visit Provider Physician Assistant
DX: M18.0 Bilateral primary osteoarthritis of first carpometacarpal joints (principal)
CPT/HCPCS: 73110

== ENCOUNTER 2024-11-02 11:19 | Emergency (ER) | payer MEDICARE, MEDICAID, SELFPAY ==
[2024-11-02 11:29] VITALS: BP 113/77; PULSE 83; RESP 17; TEMP 37.1; O2SAT 98; BMI 28.8
[2024-11-02] MEDS: TETANUS,DIPHTHERIA TOXOIDS/PF (ADULT) 0.5 ML SYRINGE IMi (12:14)
[2024-11-02] MEDS: KETOROLAC INJ 60 MG/2 ML VIAL 30 MG IM (12:15)
[2024-11-02] MEDS: BACLOFEN 10 MG TABLET PO (12:16)
--- NOTE | 2024-11-02 12:31 | PD.EDHA ---
ED Headache RME/HPI General Chief Complaint: Headache Stated Complaint: Trunk hit her head on Wednesday Time Seen by Provider: 11/02/24 11:28 Source: patient Arrival date/time: 11/02/24 11:19 Mode of arrival: ambulatory Limitations: no limitations RME / HPI RME / HPI Narrative: 69-year-old female with past medical history of HTN, HLD, migraine headaches presents for evaluation of occipital scalp pain x 5 days. She reports that she accidentally hit her head on the trunk door of her car on Wednesday. She was not evaluated at the time of the incident. She endorses laceration. She denies LOC, unsteady gait, weakness, visual changes, neck pain, tingling, jaw pain, ear pain. She reports persistent trapezius tension and scapular tension. She reports she has been taking ibuprofen with minimal improvement in her symptoms. Patient does not recall the date of her last tetanus shot. MD Complaint: headache Onset (ago): day(s) Context: recent head injury Associated symptoms: none Treatments prior to arrival: none and ibuprofen Related Data Home Medications ?Medication ?Instructions ?Recorded ?Confirmed clonidine HCl 0.2 mg tablet 0.2 mg PO TID 08/05/20 01/27/22 loratadine 10 mg tablet 10 mg PO QDAY 08/05/20 01/27/22 metoprolol tartrate 50 mg tablet 50 mg PO BID 08/05/20 01/27/22 montelukast 10 mg tablet 10 mg PO HS 08/05/20 01/27/22 atorvastatin 10 mg tablet 10 mg PO HS 10/09/21 01/27/22 pregabalin 100 mg capsule 100 mg PO BID 10/09/21 01/27/22 amlodipine 5 mg tablet 5 mg PO QDAY 01/27/22 01/27/22 ferrous sulfate 325 mg (65 mg 325 mg PO QDAY 01/27/22 01/27/22 iron) tablet furosemide 40 mg tablet 40 mg PO QAM 01/27/22 01/27/22 Previous Rx's ?Medication ?Instructions ?Recorded potassium chloride 8 mEq 8 meq PO QDAY #7 caps 10/12/21 capsule,extended release lidocaine 5 % topical patch 2 patch topical QDAY #15 ea 01/25/22 (Lidoderm) melatonin 5 mg tablet 5 mg PO HS PRN sleep #30 tabs 01/25/22 lidocaine 5 % topical patch 1 patch topical QDAY #15 ea 04/16/22 benzonatate 200 mg capsule 200 mg PO TID PRN cough #20 caps 03/23/23 naproxen 500 mg tablet 500 mg PO BID #30 tabs 10/27/23 hydrocodone 5 mg-acetaminophen 325 1 tab PO BID PRN pain #6 tabs 11/14/23 mg tablet dextromethorphan-guaifenesin 10 10 ml PO Q4H PRN cough #500 mL 12/14/23 mg-100 mg/5 mL oral liquid (Diabetic Tussin DM) nirmatrelvir 150 mg (10)-ritonavir See Rx Instructions PO .COMPLEX 12/14/23 100 mg (10) tablets in a dose pack #20 tabs (Paxlovid) cyclobenzaprine 10 mg tablet 10 mg PO TID PRN muscle spasm #10 04/28/24 tabs ibuprofen 600 mg tablet 600 mg PO Q8H PRN pain #20 tabs 04/28/24 cyclobenzaprine 5 mg tablet 5 mg PO TID PRN muscle spasm #14 11/02/24 tabs ibuprofen 600 mg tablet 600 mg PO TID PRN pain #14 tabs 11/02/24 Allergies Allergy/AdvReac Type Severity Reaction Status Date / Time Iodinated Contrast Media Allergy Severe I FEEL Verified 11/02/24 11:25 LIKE MY THROAT IS CLOSING, VOMITING lactose Allergy Severe Diarrhea Verified 11/02/24 11:25 Review of Systems Constitutional Constitutional: Denies body ache(s), Denies chills, Denies fever(s), Denies frequent falls and Reports headache(s) Eyes Eyes: Denies blind spots, Denies blurry vision, Denies change in vision and Denies diplopia ENT Ears, Nose, Mouth, and Throat: Denies abnormal hearing, Denies disequilibrium, Denies dizziness, Denies ear discharge, Denies otalgia, Denies facial pain, Reports headache(s) and Denies neck pain Cardiovascular Cardiovascular: Denies chest pain, Denies dyspnea and Denies leg edema Respiratory Respiratory: Denies cough, Denies dyspnea and Denies wheezing Gastrointestinal Gastrointestinal: Denies abdominal pain, Denies diarrhea, Denies nausea and Denies vomiting Genitourinary Genitourinary: Denies dysuria Musculoskeletal Musculoskeletal: Denies abnormal gait, Denies back pain, Denies joint swelling, Denies muscle weakness, Denies myalgias, Denies neck pain, Denies numbness, Denies stiffness and Denies tingling Integumentary/Breasts Skin/Breast: Denies changing lesions, Denies rash and Reports wounds Neurologic Neurologic: Denies abnormal gait, Denies abnormal hearing, Denies abnormal speech, Denies behavioral changes, Denies confusion, Denies convulsions, Denies disequilibrium, Denies dizziness, Denies frequent falls, Reports headache(s), Denies numbness and Denies tingling Psychiatric Psychiatric: Denies behavioral changes and Denies confusion Allergic/Immunologic Allergic/Immunologic: Denies wheezing Past Medical History Past Medical History NEUROLOGIC: Positive Neurological Disorders, Cerebrovascular Accident and Subdural Hematoma CARDIAC: Positive Cardiac Disorders, Hypercholesterolemia and Hypertension; Negative Congestive Heart Failure RESPIRATORY: Positive Asthma; Negative Chronic Obstructive Pulmonary Disease (COPD) GASTROINTESTINAL: Positive Hiatal Hernia GENITOURINARY: Negative Renal Disease MUSCULOSKELETAL: Positive Arthritis and Fibromyalgia ENDOCRINE: Positive Diabetes Mellitus Type 2; Negative Diabetes Mellitus Type 1 Social History SMOKING STATUS: Never smoker SUBSTANCE USE: does not use ED Exam General Limitations: Present no limitations General appearance: Present alert and in no apparent distress Expanded Head Exam Head exam physical: Present laceration; Absent hematoma, raccoon eyes, Moses's sign or CSF rhinorrhea Head image:  1. Approximately 3 cm, linear, well-healing laceration with mild surrounding erythema. No increased warmth. No crepitus, no induration. Noncellulitic appearing. Eye Eye exam: Present normal appearance, PERRL and EOMI; Absent periorbital swelling or periorbital tenderness ENT ENT exam: Present normal oropharynx, mucous membranes moist and TM's normal bilaterally Expanded ENT Exam External ear exam: Absent auricular hematoma or auricular trauma Neck Neck exam: Present normal inspection and full ROM; Absent tenderness Expanded Neck Exam Neck exam focused ED: Present paraspinal tenderness; Absent midline tenderness Chest Chest inspection: Present normal inspection and symmetric chest wall rise; Absent tenderness Respiratory Respiratory exam: Present normal lung sounds bilaterally; Absent respiratory distress or wheezes Cardiovascular Cardiovascular exam: Present regular rate and +S1 Abdominal Exam Abdominal exam: Present soft; Absent distention Extremities Exam Extremities exam: Present normal inspection and full ROM; Absent tenderness Back Exam Back exam: Present normal inspection and full ROM; Absent tenderness Neurological Exam Neurological exam: Present alert, oriented X3, normal gait and reflexes normal (Bilateral patellar reflexes 3+ and equal bilaterally.) Expanded Neurological Exam Patient oriented to: Present person, place and time Speech: Present fluid speech Cranial nerves: Normal: facial sensation (V), gag reflex (IX), spinal accessory function (XI) and tongue deviation (XII) Cerebellar function: Present normal gait Motor strength - LUE: 5/5 Motor strength - RUE: 5/5 Motor strength - LLE: 5/5 Motor strength - RLE: 5/5 Psychiatric Psychiatric exam: Present normal affect Skin Skin exam: Present warm and dry Course Quality Measures none Orders Category Date Time Status Baclofen [Lioresal] Med 11/02/24 11:49 Discontinued 10 mg PO X1 ONE Ketorolac Inj [Toradol Inj] Med 11/02/24 11:49 Discontinued 30 mg IM X1 ONE Tetanus, Diphtheria Toxoids/Pf [Tenivac-Adult] Med 11/02/24 11:49 Discontinued 0.5 ml IMI .ONCE ONE Vital Signs Vital signs: Vital Signs Temperature 98.8 F 11/02/24 11:29 Pulse Rate 83 11/02/24 11:29 Respiratory Rate 17 11/02/24 11:29 Blood Pressure 113/77 11/02/24 11:29 Pulse Oximetry (%) 98 11/02/24 11:29 Oxygen Delivery Method Room Air 11/02/24 11:29 Pulse ox 98% on room air, within normal limits. Headache MDM Narrative MDM Narrative:: 69-year-old female presents for evaluation of occipital scalp pain after hitting her head with a trunk door x 5 days ago. Well-healing laceration occipital scalp. No cellulitic appearance. Vital signs reassuring. No neurodeficit on exam. Less concerned for acute intracranial process at this time. Bilateral trapezius tender to palpation so possibly muscular related. Gag reflex intact therefore less concern for tetanus at this time. Ultimately the patient was discharged with muscle relaxers and ibuprofen with plan to follow-up with primary care within the next 2 to 3 days for reevaluation. Return precautions were provided. Patient stable at time of discharge. Patient data External records reviewed:: [facility] previous records Clinical information provided by:: patient Social determinants that could affect healthcare access:: none Patient has the following chronic illnesses:: Hypertension, hyperlipidemia, chronic migraines. How is presenting disease/condition affected by chronic disease/condition?: uneffected by Evaluation data The following diagnostics were reviewed and interpreted by me:: other (specify) Lab and/or radiology exams considered but not ordered:: Considered not ordered. Interpretation Summary: Considered not ordered. Medications / Prescriptions Medications or Prescriptions considered but not ordered:: Rx given. Medication administrations:: Medication Administration History Discontinued Medications Baclofen (Baclofen 10 Mg Tablet) 10 mg PO X1 ONE Stop: 11/02/24 11:50 Last Admin: 11/02/24 12:16 Dose: 10 mg Documented By: MALENA Ketorolac Tromethamine (Ketorolac Inj 60 Mg/2 Ml Vial) 30 mg IM X1 ONE Stop: 11/02/24 11:50 Last Admin: 11/02/24 12:15 Dose: 30 mg Documented By: MALENA Tetanus/Diphtheria Toxoids (Tetanus,Diphtheria Toxoids/Pf (Adult) 0.5 Ml Syringe) 0.5 ml IMi .ONCE ONE Stop: 11/02/24 11:50 Last Admin: 11/02/24 12:14 Dose: 0.5 ml Documented By: MALENA Rx given. Consultations Consultation(s) initiated? (list below): No Diagnosis Differential diagnosis headache: migraine, tension headache, subarachnoid hemorrhage, headache and other (Tetanus.) Most likely diagnosis given after review of the tests above:: Tension headache. Admission Indicated Admission indicated?: not indicated Admission Request Was there a request for admission?: No Disposition Plan Disposition Plan: Discharge Discharge Attestation Discharge Attestation: The patient and all family members were given an opportunity to ask questions and understood the discharge instructions. Discharge instructions specifically effects, indications for sooner follow up or return to the emergency department, and the expected course of current diagnosis. Patient condition: Stable Discharge Plan Plan Patient Disposition: HOME (Self Care) Discharge Disposition comment: stable Prescriptions/Referrals Prescriptions/Med Rec: New cyclobenzaprine 5 mg tablet 5 mg PO TID PRN (Reason: muscle spasm) Qty: 14 0RF ibuprofen 600 mg tablet 600 mg PO TID PRN (Reason: pain) Qty: 14 0RF No Action atorvastatin 10 mg Tablet 10 mg PO HS pregabalin 100 mg capsule 100 mg PO BID clonidine HCl 0.2 mg tablet 0.2 mg PO TID metoprolol tartrate 50 mg tablet 50 mg PO BID montelukast 10 mg tablet 10 mg PO HS loratadine 10 mg tablet 10 mg PO QDAY potassium chloride 8 mEq capsule, extended release 8 meq PO QDAY Qty: 7 0RF lidocaine [Lidoderm] 5 % adhesive patch,medicated 2 patch topical QDAY Qty: 15 0RF Rx Instructions: leave on most painful area for up to 12 hrs melatonin 5 mg tablet 5 mg PO HS PRN (Reason: sleep) Qty: 30 0RF benzonatate 200 mg capsule 200 mg PO TID PRN (Reason: cough) Qty: 20 0RF hydrocodone-acetaminophen 5-325 mg tablet 1 tab PO BID MDD 10 PRN (Reason: pain) Qty: 6 0RF Paxlovid 150-100 mg tablets,dose pack See Rx Instructions PO .COMPLEX Qty: 20 0RF Rx Instructions: take ONE 150 mg tablet of nirmatrelvir with ONE 100 mg tablet of ritonavir twice daily for 5 days dextromethorphan-guaifenesin [Diabetic Tussin DM] 10-100 mg/5 mL liquid 10 ml PO Q4H PRN (Reason: cough) Qty: 500 0RF furosemide 40 mg Tablet 40 mg PO QAM amlodipine 5 mg Tablet 5 mg PO QDAY ferrous sulfate 325 mg (65 mg iron) Tablet 325 mg PO QDAY lidocaine 5 % adhesive patch,medicated 1 patch topical QDAY Qty: 15 0RF Rx Instructions: leave on most painful area for up to 12 hrs naproxen 500 mg tablet 500 mg PO BID Qty: 30 0RF cyclobenzaprine 10 mg tablet 10 mg PO TID PRN (Reason: muscle spasm) Qty: 10 0RF ibuprofen 600 mg tablet 600 mg PO Q8H PRN (Reason: pain) Qty: 20 0RF Problem List Clinical Impression: Scalp pain, Laceration, Muscle spasm Patient/Caregiver Discharge Instructions Education Materials: Self-Care for Headaches, ED Muscle Spasm Additional Instructions: Take Flexeril every 8 hours as needed for muscle spasm. Take ibuprofen or tylenol every 6 hours as needed for pain. Follow-up with primary care within the next 3 to 4 days for reevaluation. Return to the ED if your symptoms worsen or change. Print Language: Frisian Stand Alone Forms: Nelly Award Info., Patient Portal Info Letter PA/CALL CENTER NURSE Supervising Physician PA/CALL CENTER NURSE Supervising Physician: Dr. Mcpherson
[2024-11-02 13:20] VITALS: PULSE 69; RESP 18; TEMP 36.8; O2SAT 97
== END 2024-11-02 13:22 | disposition home or self-care (01) ==
PROVIDERS: Emergency Provider Emergency Medicine; PCP Physician Assistant
DX: S01.01XA Laceration without foreign body of scalp, initial encounter (principal); M62.838 Other muscle spasm; W22.8XXA Striking against or struck by other objects, initial encounter; Y92.810 Car as the place of occurrence of the external cause
CPT/HCPCS: 90471; 90714; 96372; 99283; J1885; A9270

== ENCOUNTER → 2024-12-01 | Outpatient (CLI) | payer MEDICARE, MEDICAID, SELFPAY ==
--- NOTE | 2024-12-01 08:30 | XR_ITS ---
Examination: Screening digital mammography, bilateral Computer aided detection 3-D breast Tomosynthesis, bilateral Date and time of exam: December 01, 2024 0903 hours Compared to mammograms dating to October 28, 2007 Indication: Screening Technique: Nonmagnified MLO, CC views of the breasts to been obtained, reconstructed from 3-D Tomosynthesis images. R2 computer aided detection program utilized for evaluation of suspicious masses and/or abnormal calcifications. 3-D Tomosynthesis images obtained. Findings: Scattered areas of fibroglandular density Benign calcifications. No interval suspicious masses Impression: BI-RADS category II: Benign Findings. Recommend 1 year follow-up mammogram.
== END | disposition home or self-care (01) ==
LOC: CDIM 08:43
PROVIDERS: PCP Physician Assistant; Referring Provider Physician Assistant; Visit Provider Physician Assistant
DX: Z12.31 Encounter for screening mammogram for malignant neoplasm of breast (principal); R92.323 Mammographic fibroglandular density, bilateral breasts; R92.1 Mammographic calcification found on diagnostic imaging of breast
CPT/HCPCS: 77063; 77067